=== PATIENT | male | born 1970 | race Caucasian/White ===

== ENCOUNTER 2017-01-11 06:28 | Emergency (ER) | payer SELFPAY | END 2017-01-11 07:44 | disposition home or self-care (01) | LOC: D.ER 06:28 | DX: S51.012A Laceration without foreign body of left elbow, initial encounter (principal); W26.0XXA Contact with knife, initial encounter; Y93.89 Activity, other specified; Y92.89 Other specified places as the place of occurrence of the external cause; F17.200 Nicotine dependence, unspecified, uncomplicated ==